=== PATIENT | female | born 1995 | race Caucasian/White ===

== ENCOUNTER 2022-06-05 08:54 | Emergency (ER) | payer OTHER ==
[2022-06-05] MEDS ORDERED: AMOX TR-K CLV1 EAC4 PO (09:40)
== END 2022-06-05 10:14 | disposition home or self-care (01) ==
LOC: ER1 08:54
DX: K04.7 Periapical abscess without sinus (principal); F17.210 Nicotine dependence, cigarettes, uncomplicated
CPT/HCPCS: 96372; 99282; J1885